=== PATIENT | female | born 1975 | race Caucasian/White ===

== ENCOUNTER 2016-10-05 11:27 | Emergency (ER) | payer BC ==
--- NOTE | 2016-10-05 11:48 | Emergency Department Record ---
History of Present Illness - General Chief Complaint: Abdominal Pain Stated Complaint: ABD PAIN AND VAG BLEEDING Time Seen by Provider: 10/05/16 11:48 Source: Patient Mode of Arrival: Ambulatory Limitations: No limitations - History of Present Illness Initial Comments: The patient is here due to a one week hx of unusual vaginal bleeding with pelvic cramping the last few days. She denies any dizziness or lightheadedness. The bleeding has been off and on for a few days and presently seems to have stopped. The bleeding did start a week before her normal menses should occur. She denies any fever or chills, and she does have an appointment with her TECHNICAL FELLOW doctor later this week. The patient has had her L ovary removed in the past. MD Complaint: Abdominal pain Onset/Timin -: Week(s) Location: Suprapubic Radiation: None Migration to: LLQ Severity: Moderate Quality: Cramping, Sharp, Stabbing Consistency: Constant Improves With: Nothing Worsens With: Nothing Context: Other Associated Symptoms: Chills, Other Treatments Prior to Arrival: NSAIDs - Related Data LMP (females 10-50): Last week Home Medications Medication Instructions Recorded Confirmed Last Taken Lisinopril 10 mg PO DAILY 10/05/16 10/05/16 10/05/16 Metformin HCl [Glucophage Xr] 500 mg PO DAILY 10/05/16 10/05/16 Unknown Pravastatin Sodium [Pravachol] 40 mg PO DAILY 10/05/16 10/05/16 Unknown Sumatriptan Succinate [Imitrex] 100 mg PO DAILY 10/05/16 10/05/16 Unknown Temazepam [Restoril] 22.5 mg PO QHS PRN 10/05/16 10/05/16 Unknown Previous Rx's Medication Instructions Recorded Doxycycline Monohydrate [Mondoxyne 100 mg PO BID #20 capsule 10/05/16 Nl] Hydrocodone/Acetaminophen [[place] 1 - 2 each PO .EVERY 4-6 HRS PRN 10/05/16 5-325 Tablet] #20 tablet Metronidazole [Flagyl] 500 mg PO BID #20 tablet 10/05/16 Ondansetron [Zofran Odt] 4 mg SL .Q4-6H PRN #12 tab.rapdis 10/05/16 Allergies Allergy/AdvReac Type Severity Reaction Status Date / Time acetaminophen [From [place]] AdvReac ITCHING Verified 10/05/16 11:56 diphenhydramine HCl AdvReac HYPERSENSIT Verified 10/05/16 11:56 [From Benadryl] IVITY hydrocodone bitartrate AdvReac ITCHING Verified 10/05/16 11:56 [From [place]] Travel Screening - Travel/Exposure Within Last 30 Days Have you traveled within the last 30 days?: No - Travel/Exposure Within Last Year Have you traveled outside the [place] in the last year?: No - Additonal Travel Details Have you been exposed to anyone with a communicable illness?: No - Travel Symptoms Symptom Screening: None Review of Systems Constitutional: Denies: Chills, Fever Eyes: Denies: Eye discharge ENT: Denies: Congestion Respiratory: Denies: Cough, Dyspnea Past Medical History - SOCIAL HISTORY Smoking Status: Never smoker Alcohol Use: None Drug Use: None - RESPIRATORY Hx Respiratory Disorders: No - CARDIOVASCULAR Hx Cardio Disorders: Yes Hx Hypertension: Yes - NEURO Hx Neuro Disorders: Yes Hx Headaches: Yes - GI Hx GI Disorders: No - Hx Genitourinary Disorders: Yes Hx UTI: Yes - ENDOCRINE Hx Endocrine Disorders: Yes Hx Diabetes: Yes (Type 2) - MUSCULOSKELETAL Hx Musculoskeletal Disorders: No - PSYCH Hx Psych Problems: Yes Hx Anxiety: Yes - HEMATOLOGY/ONCOLOGY Hx Hematology/Oncology Disorders: No Family Medical History Any Significant Family History?: No Family Hx Comment (NOT TO BE USED IN PLACE OF ITEMS BELOW): Pt adopted. Physical Exam - General General Appearance: Alert, Oriented x3, Cooperative, No acute distress - Head Head exam: Atraumatic, Normocephalic, Normal inspection - Eye Eye exam: Normal appearance, PERRL - Neck Neck exam: Normal inspection, Full ROM. negative: Tenderness - Respiratory Respiratory exam: Normal lung sounds bilaterally. negative: Respiratory distress - Cardiovascular Cardiovascular Exam: Regular rate, Normal rhythm, Normal heart sounds - GI/Abdominal GI/Abdominal exam: Soft, Normal bowel sounds, Tenderness (There is very mild pelvic and lower abdominal tenderness.). negative: Guarding, Rebound, Rigid - exam: Adnexal tenderness (L), Adnexal tenderness (R), Cervical discharge ( mild.), cervical motion tenderness (moderate), Vaginal discharge (mild.). negative: Vaginal bleeding (The os was closed and there was no active bleeding.) , Vaginal erythema - Extremities Extremities exam: Normal inspection, Full ROM, Normal capillary refill. negative: Tenderness Course Vital Signs 10/05/16 11:46 Temperature 98.3 F Pulse Rate [ 105 H Pulse Ox Probe] Respiratory 16 Rate Blood Pressure 151/92 [Left Arm] Pulse Ox 99 - Reevaluation(s) Reevaluation #1: The patient is doing better at this time. She is resting comfortably and feels better with the Toradol. We are still waiting on the pelvic US. 10/05/16 13:38 Reevaluation #2: The patient is doing much better at this time. She is resting comfortably and appears very relaxed. On exam her abdomen is very soft with only minimal tenderness in the lower abdomen. 10/05/16 16:05 Reevaluation #3: The patient is resting comfortably and is declining any more pain medicines. Her CT was WNL and did not demonstrate any serious pathology. 10/05/16 16:25 Reevaluation #4: I did discuss the case with the patient's PCP Dr. Garcia. She agrees with the plan for discharge and following up later this week as planned. 10/05/16 16:41 Medical Decision Making - Data Complexity MDM Data: Labs Ordered and/or Reviewed, X-Ray Ordered and/or Reviewed - Lab Data Result diagrams: 10/05/16 12:11 10/05/16 12:11 - Radiology Data Radiology results: Report reviewed (Pelvic US: Uterus WNL with the R ovary WNL with no torsion. The L ovary is surgically absent. CT: Neg for any serious pathology. Normal Appendix.) Disposition Disposition: Discharge Clinical Impression: Pelvic pain Disposition: Home, Self-Care Condition: (1) Good Instructions: Pelvic Pain in Women (ED) Additional Instructions: Please take the [place] and Zofran as directed. Please also take the Flagyl and Doxycycline as directed. Please see your TECHNICAL FELLOW doctor in 3 days as planned. Return to the ER for any increased pain, fever or vomiting. Please return to the ER in the morning for any persistent pain, or sooner for worsening pain, fever, or vomiting. Prescriptions: Metronidazole [Flagyl] 500 mg PO BID #20 tablet Doxycycline Monohydrate [Mondoxyne Nl] 100 mg PO BID #20 capsule Hydrocodone/Acetaminophen [[place] 5-325 Tablet] 1 - 2 each PO .EVERY 4-6 HRS PRN #20 tablet PRN Reason: Pain Ondansetron [Zofran Odt] 4 mg SL .Q4-6H PRN #12 tab.rapdis PRN Reason: Nausea Forms: Patient Portal Access Time of Disposition: 16:45
[2016-10-05] MEDS ORDERED: 0.9 % SODIUM CHLORIDE 1,000 ML BAG IV ONE (11:55)
[2016-10-05 12:14] LABS: BASO % 0.3 % (0-6); EOS % 1.4 % (0-6); GRAN % 76.5 % (47-80); HEMATOCRIT 40.3 % (35.0-47.0); HEMOGLOBIN 13.7 gm/dl (11.6-16.0); LYMPH % 16.7 % (16-45); MEAN CELL VOLUME 77.4 fl (81-97); MEAN CORPUSCULAR HEMOGLOBIN 26.3 pg (27-33); MEAN PLATELET VOLUME 9.6 fl (7.4-10.4); MONO % 5.1 % (0-9); PLATELET COUNT 357 K/uL (130-400); RED BLOOD COUNT 5.21 M/uL (3.80-5.40); RED CELL DISTRIBUTION WIDTH 13.3 % (11.5-14.5); WHITE BLOOD COUNT W/O DIFF 9.4 K/uL (4.2-12.2)
[2016-10-05 12:15] LABS: URINE APPEARANCE CLEAR; URINE BILIRUBIN NEGATIVE (NEGATIVE); URINE BLOOD SMALL (NEGATIVE); URINE COLOR YELLOW; URINE KETONE NEGATIVE (NEGATIVE); URINE LEUKOCYTE ESTERASE NEGATIVE (NEGATIVE); URINE NITRITE NEGATIVE (NEGATIVE); URINE PROTEIN NEGATIVE (NEGATIVE); URINE UROBILINOGEN 0.2 E.U./dL (0.20 - 1.00)
[2016-10-05 12:25] LABS: URINE BACTERIA 2+; URINE SQUAMOUS EPITHELIAL CELL 16 - 20 /hpf
[2016-10-05 12:26] LABS: HCG,QUALITATIVE URINE NEGATIVE (NEGATIVE)
[2016-10-05 12:27] LABS: ALBUMIN 4.6 gm/dL (3.5-5.0); ALKALINE PHOSPHATASE 103 U/L (38-126); ALT/SGPT 35 U/L (9-52); ANION GAP 16.3 (7-16); AST/SGOT 16 U/L (14-36); BILIRUBIN,TOTAL 0.41 mg/dL (0.2-1.3); BLOOD UREA NITROGEN 8 mg/dL (7-17); CARBON DIOXIDE 24.7 mmol/L (22-30); CREATININE 0.6 mg/dL (0.52-1.04); EST GLOMERULAR FILTRATION RATE > 60 ml/min; GLUCOSE,RANDOM 292 mg/dL (70-110); LIPASE 46 U/L (23-300); TOTAL PROTEIN 7.5 gm/dL (6.3-8.2)
[2016-10-05] MEDS ORDERED: KETOROLAC 30 MG/ML VIAL IVP ONE ×2 (12:31→15:14)
[2016-10-05] MEDS ORDERED: HYDROMORPHONE HCL 1 MG/ML CPJ IVP ONE ×2 (15:24→16:40)
[2016-10-05] MEDS ORDERED: ONDANSETRON HCL IV 4 MG/2 ML VIAL IVP ONE (15:24)
[2016-10-05] MEDS ORDERED: CEFTRIAXONE 250 MG VIAL IM ONE (16:38)
[2016-10-06 19:43] LABS: GC SPECIMEN TYPE Cervix (())
--- NOTE | 2016-10-07 15:00 | CT SCAN REPORT ---
EXAM: CT OF THE ABDOMEN AND PELVIS WITHOUT CONTRAST HISTORY: INTERMITTENT LOWER ABDOMINAL PAIN FOR ONE WEEK. HEAVY PERIODS. TECHNIQUE: Thin collimation helical CT examination of the abdomen and pelvis was performed without oral or intravenous contrast administration limiting evaluation of bowel and solid viscera respectively. Comparison: Ultrasound of the pelvis with transvaginal imaging dated 10/05/16. FINDINGS: The visualized lung bases are grossly clear. No pleural or pericardial effusion is demonstrated. No focal abnormality is demonstrated within the liver, spleen, pancreas, or adrenal glands. The kidneys are normal in size, position and are smoothly marginated. There is a possible tiny nonobstructing calculus in the mid left kidney as seen on image 35 of 117. No renal mass identified. The renal collecting systems are normal in caliber throughout. No ureteral calculus visualized. There is mild distention of the gallbladder without evidence of calcified stone , gallbladder wall thickening or pericholecystic fluid. No biliary ductal dilatation is seen. No intraabdominal nor retroperitoneal lymphadenopathy. No pelvic mass or lymphadenopathy demonstrated. There is possible trace free fluid in the cul-de-sac. The small uterine mass demonstrated on same day ultrasound examination is not visualized with confidence. No gross bowel dilatation nor bowel wall thickening is seen. The appendix is visualized and normal in appearance. No lytic or blastic bone lesion demonstrated. IMPRESSION: 1. TRACE FREE FLUID IN THE CUL-DE-SAC IS NONSPECIFIC. 2. POSSIBLE TINY NONOBSTRUCTING CALCULUS IN THE MID LEFT KIDNEY. 3. NORMAL APPENDIX. JOB NUMBER: [id number] [facility]TDD
--- NOTE | 2016-10-07 15:39 | ULTRASOUND REPORT ---
EXAM: ULTRASOUND PELVIC W TRANSVAG (NON-OB) HISTORY: PELVIC PAIN SINCE WEDNESDAY. VAGINAL BLEEDING. TECHNIQUE: Sonographic evaluation of the pelvis was performed using transabdominal and transvaginal probes. Flynn-scale, color Doppler, and duplex Doppler imaging were utilized. COMPARISON: None. FINDINGS: TRANSABDOMINAL SCAN: The uterus is anteverted in position and normal in size measuring 7.7 x 3.3 x 4.7 cm. The myometrium appears grossly normal. The endometrium is normal measuring 7 mm. There are no abnormal endometrial fluid collections. The right ovary is normal in appearance and size measuring 2.9 x 1.1 x 2.9 cm. The left ovary is not visualized. TRANSVAGINAL SCAN: Tiny nabothian cysts are present within the cervix. The myometrium is normal. The endometrium is normal in thickness measuring 10 mm. There is a mildly heterogeneous polypoid-like filling defect within the posterior aspect of the endometrium measuring 8 mm in maximal dimension. The appearance is suspicious for an endometrial polyp. A tiny intramural fibroid is present within the posterior uterine body and measures 5 mm in maximal dimension. The remaining myometrium appears normal. The right ovary contains a few simple follicles but is otherwise unremarkable measuring 4 x 2.8 x 3.6 cm. A tiny amount of free fluid is present within the posterior cul-de-sac. The left ovary is not visualized. Duplex Doppler ultrasound was performed to asses for ovarian torsion. Color- flow is present within the right ovary. Intraovarian spectral venous and arterial waveforms of the right ovary demonstrate unremarkable, uncorrected velocities. There is no right ovarian torsion. IMPRESSION: 1. SUSPECTED ENDOMETRIAL POLYP ALONG THE POSTERIOR ENDOMETRIUM NEAR THE FUNDUS AND MEASURING 8 MM IN MAXIMAL DIMENSION. ENDOMETRIAL SAMPLING IS SUGGESTED. 2. A 5 MM INTRAMURAL FIBROID WITHIN THE POSTERIOR FUNDUS. 3. NORMAL RIGHT OVARY WITH NO TORSION. 4. TRACE FREE FLUID WITHIN THE POSTERIOR CUL-DE-SAC. 5. THE LEFT OVARY IS NOT VISUALIZED. JOB NUMBER: [id number] [facility]
== END 2016-10-05 17:04 | disposition home or self-care (01) ==
LOC: ER 11:27
DX: R10.2 Pelvic and perineal pain (principal); R10.32 Left lower quadrant pain; N93.9 Abnormal uterine and vaginal bleeding, unspecified; I10 Essential (primary) hypertension; E11.9 Type 2 diabetes mellitus without complications; Z79.84 Long term (current) use of oral hypoglycemic drugs
CPT/HCPCS: 99284 ×2; 96376; 96374; 96372; 96375; 83690; 85025; 80076; 80048; 81001; 81025; 76856; 76830; 74176; Q0111; J1885; J2405; J0696; J1170; 87210; J7030

== ENCOUNTER 2016-10-11 07:33 | Emergency (ER) | payer BC ==
[2016-10-11] MEDS ORDERED: ONDANSETRON HCL IV 4 MG/2 ML VIAL IV ONE (08:08)
[2016-10-11] MEDS ORDERED: 0.9 % SODIUM CHLORIDE 1,000 ML BAG IV ONE (08:08)
[2016-10-11] MEDS ORDERED: DICYCLOMINE HCL 10 MG/ML AMPUL IM ONE (08:08)
[2016-10-11 08:35] LABS: URINE APPEARANCE CLEAR; URINE BILIRUBIN NEGATIVE (NEGATIVE); URINE BLOOD NEGATIVE (NEGATIVE); URINE COLOR YELLOW; URINE KETONE 15 mg/dL (NEGATIVE); URINE LEUKOCYTE ESTERASE NEGATIVE (NEGATIVE); URINE NITRITE NEGATIVE (NEGATIVE); URINE PROTEIN NEGATIVE (NEGATIVE); URINE UROBILINOGEN 0.2 E.U./dL (0.20 - 1.00)
[2016-10-11 08:36] LABS: BASO % 0.4 % (0-6); EOS % 1.5 % (0-6); GRAN % 75.5 % (47-80); HEMATOCRIT 39.6 % (35.0-47.0); LYMPH % 17.9 % (16-45); MEAN CELL VOLUME 78.7 fl (81-97); MEAN CORPUSCULAR HEMOGLOBIN 25.8 pg (27-33); MEAN CORPUSCULAR HGB CONC 32.8 g/dl (32-36); MEAN PLATELET VOLUME 9.6 fl (7.4-10.4); MONO % 4.7 % (0-9); PLATELET COUNT 286 K/uL (130-400); RED BLOOD COUNT 5.03 M/uL (3.80-5.40); RED CELL DISTRIBUTION WIDTH 13.9 % (11.5-14.5); URINE GLUCOSE (UA) >=1000 mg/dL (NEGATIVE); WHITE BLOOD COUNT W/O DIFF 7.4 K/uL (4.2-12.2)
[2016-10-11 08:47] LABS: ALB/GLOB RATIO 1.5 (1.1-1.8); ALBUMIN 4.3 gm/dL (3.5-5.0); ALKALINE PHOSPHATASE 81 U/L (38-126); ALT/SGPT 44 U/L (9-52); AMYLASE < 30 U/L (30-110); ANION GAP 14.1 (7-16); AST/SGOT 25 U/L (14-36); BLOOD UREA NITROGEN 8 mg/dL (7-17); CARBON DIOXIDE 23.9 mmol/L (22-30); CREATININE 0.5 mg/dL (0.52-1.04); EST GLOMERULAR FILTRATION RATE > 60 ml/min; GLUCOSE,RANDOM 249 mg/dL (70-110); LIPASE 37 U/L (23-300); TOTAL PROTEIN 7.1 gm/dL (6.3-8.2)
[2016-10-11] MEDS ORDERED: HYDROMORPHONE HCL 1 MG/ML CPJ IVP ONE ×2 (09:34→11:41)
--- NOTE | 2016-10-11 10:06 | Emergency Department Record ---
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 she did have an endometrial polyp that further evaluation was recommended and a fibroid but otherwise was all neg. pt returns today stating that pain got better initially but now is worse then ever. she describes pain as sharp ,crampy, stabbing in rlq. she denies n/v/c/d. MD Complaint: Abdominal pain Onset/Timin -: Days(s) Location: Suprapubic, RLQ Radiation: None Migration to: No migration Severity: Severe Quality: Sharp, Stabbing Consistency: Constant Improves With: Nothing Worsens With: Nothing Associated Symptoms: Vomiting - Related Data LMP Date: 09/27/16 Patient : No Home Medications Medication Instructions Recorded Confirmed Last Taken Lisinopril 10 mg PO DAILY 10/05/16 10/11/16 10/05/16 Metformin HCl [Glucophage Xr] 500 mg PO DAILY 10/05/16 10/11/16 Unknown Pravastatin Sodium [Pravachol] 40 mg PO DAILY 10/05/16 10/11/16 Unknown Sumatriptan Succinate [Imitrex] 100 mg PO DAILY 10/05/16 10/11/16 Unknown Temazepam [Restoril] 22.5 mg PO QHS PRN 10/05/16 10/11/16 Unknown Fluconazole [Fluconazole] 150 mg PO ASDIR 10/11/16 10/11/16 Unknown Previous Rx's Medication Instructions Recorded Doxycycline Monohydrate [Mondoxyne 100 mg PO BID #20 capsule 10/05/16 Nl] Metronidazole [Flagyl] 500 mg PO BID #20 tablet 10/05/16 Ondansetron [Zofran Odt] 4 mg SL .Q4-6H PRN #12 tab.rapdis 10/05/16 Hydrocodone/Acetaminophen [[place] 1 tab PO Q6H PRN #7 tab 10/11/16 5mg/325mg] Ondansetron [Zofran Odt] 4 mg PO Q8H #10 tab.rapdis 10/11/16 Allergies Allergy/AdvReac Type Severity Reaction Status Date / Time acetaminophen [From [place]] AdvReac ITCHING Verified 10/05/16 11:56 diphenhydramine HCl AdvReac HYPERSENSIT Verified 10/05/16 11:56 [From Benadryl] IVITY hydrocodone bitartrate AdvReac ITCHING Verified 10/05/16 11:56 [From [place]] Travel Screening - Travel/Exposure Within Last 30 Days Have you traveled within the last 30 days?: No Review of Systems Reviewed: No additional complaints except as noted below Constitutional: Reports: As per HPI. Denies: Chills, Fever, Malaise, Night sweats, Weakness, Weight change Eyes: Reports: As per HPI. Denies: Eye discharge, Eye pain, Photophobia, Vision change ENT: Reports: As per HPI. Denies: Congestion, Dental pain, Ear pain, Epistaxis , Hearing loss, Throat pain Respiratory: Reports: As per HPI. Denies: Cough, Dyspnea, Hemoptysis, Stridor, Wheezes Cardiovascular: Reports: As per HPI. Denies: Arrhythmia, Chest pain, Dyspnea on exertion, Edema, Murmurs, Orthopnea, Palpitations, Paroxysmal nocturnal dyspnea, Rheumatic Fever, Syncope Endocrine: Reports: As per HPI. Denies: Fatigue, Heat or cold intolerance, Polydipsia, Polyuria Gastrointestinal: Reports: As per HPI. Denies: Abdominal pain, Constipation, Diarrhea, Hematemesis, Hematochezia, Melena, Nausea, Vomiting Genitourinary: Reports: As per HPI. Denies: Abnormal menses, Discharge, Dyspareunia, Dysuria, Frequency, Hematuria, Incontinence, Retention, Urgency Musculoskeletal: Reports: As per HPI. Denies: Arthralgia, Back pain, Gout, Joint swelling, Myalgia, Neck pain Skin: Reports: As per HPI. Denies: Bruising, Change in color, Change in hair/ nails, Lesions, Pruritus, Rash Neurological: Reports: As per HPI. Denies: Abnormal gait, Confusion, Headache, Numbness, Paresthesias, Seizure, Tingling, Tremors, Vertigo, Weakness Psychiatric: Reports: As per HPI. Denies: Anxiety, Auditory hallucinations, Depression, Homicidal thoughts, Suicidal thoughts, Visual hallucinations Hematological/Lymphatic: Reports: As per HPI. Denies: Anemia, Blood Clots, Easy bleeding, Easy bruising, Swollen glands Past Medical History - SOCIAL HISTORY Smoking Status: Never smoker Alcohol Use: Rare Drug Use: None - RESPIRATORY Hx Respiratory Disorders: No - CARDIOVASCULAR Hx Cardio Disorders: Yes Hx Hypertension: Yes - NEURO Hx Neuro Disorders: Yes Hx Headaches: Yes - GI Hx GI Disorders: No - Hx Genitourinary Disorders: Yes Hx UTI: Yes - ENDOCRINE Hx Endocrine Disorders: Yes Hx Diabetes: Yes (Type 2) - MUSCULOSKELETAL Hx Musculoskeletal Disorders: No - PSYCH Hx Psych Problems: Yes Hx Anxiety: Yes - HEMATOLOGY/ONCOLOGY Hx Hematology/Oncology Disorders: No Family Medical History Any Significant Family History?: No Family Hx Comment (NOT TO BE USED IN PLACE OF ITEMS BELOW): Pt adopted. Physical Exam - General General Appearance: Alert, Oriented x3, Cooperative, Mild distress - Head Head exam: Normal inspection - Eye Eye exam: Normal appearance, PERRL, EOMI Pupils: Normal accommodation - ENT ENT exam: Normal exam, Mucous membranes moist, Normal external ear exam, Normal orophraynx Ear exam: Normal external inspection. negative: External canal tenderness Nasal Exam: Normal inspection. negative: Discharge, Sinus tenderness Mouth exam: Normal external inspection, Tongue normal Teeth exam: Normal inspection. negative: Dental caries Throat exam: Normal inspection. negative: Tonsillar erythema, Tonsillar exudate - Neck Neck exam: Normal inspection, Full ROM. negative: Tenderness - Respiratory Respiratory exam: Normal lung sounds bilaterally. negative: Respiratory distress - Cardiovascular Cardiovascular Exam: Regular rate, Normal rhythm, Normal heart sounds - GI/Abdominal GI/Abdominal exam: Soft, Normal bowel sounds, Tenderness - Rectal Rectal exam: Deferred - exam: Deferred - Extremities Extremities exam: Normal inspection, Full ROM, Normal capillary refill. negative: Tenderness - Back Back exam: Reports: Normal inspection, Full ROM. Denies: Muscle spasm, Rash noted, Tenderness - Neurological Neurological exam: Alert, CN II-XII intact, Normal gait, Oriented X3 - Psychiatric Psychiatric exam: Normal affect, Normal mood - Skin Skin exam: Dry, Intact, Normal color, Warm Course Vital Signs 10/11/16 07:37 Temperature 97.4 F L Pulse Rate 94 H Respiratory 14 Rate Blood Pressure 133/94 Pulse Ox 99 Medical Decision Making - Lab Data Result diagrams: 10/11/16 08:20 10/11/16 08:20 Lab Results 10/11/16 10/11/16 10/11/16 Range/Units 08:20 08:20 08:20 WBC 7.4 (4.2-12.2) K/uL RBC 5.03 (3.80-5.40) M/uL Hgb 13.0 (11.6-16.0) gm/dl Hct 39.6 (35.0-47.0) % MCV 78.7 L (81-97) fl MCH 25.8 L (27-33) pg MCHC 32.8 (32-36) g/dl RDW 13.9 (11.5-14.5) % Plt Count 286 (130-400) K/uL MPV 9.6 (7.4-10.4) fl Gran % 75.5 (47-80) % Lymphocytes % 17.9 (16-45) % Monocytes % 4.7 (0-9) % Eosinophils % 1.5 (0-6) % Basophils % 0.4 (0-6) % Sodium 137 (136-145) mmol/L Potassium 4.0 (3.5-5.1) mmol/L Chloride 99 (98-107) mmol/L Carbon Dioxide 23.9 (22-30) mmol/L Anion Gap 14.1 (7-16) BUN 8 (7-17) mg/dL Creatinine 0.5 L (0.52-1.04) mg/dL Estimated GFR > 60 ml/min Random Glucose 249 H (70-110) mg/dL Calcium 9.2 (8.5-10.1) mg/dL Total Bilirubin 0.30 (0.2-1.3) mg/dL AST 25 (14-36) U/L ALT 44 (9-52) U/L Alkaline Phosphatase 81 (38-126) U/L Total Protein 7.1 (6.3-8.2) gm/dL Albumin 4.3 (3.5-5.0) gm/dL Globulin 2.8 (1.4-4.8) gm/dL Albumin/Globulin Ratio 1.5 (1.1-1.8) Amylase < 30 L (30-110) U/L Lipase 37 (23-300) U/L Urine Color Yellow Urine Appearance Clear Urine pH 6.0 (5.0-8.0) Ur Specific [place] 1.025 (1.002-1.030) Urine Protein Negative (NEGATIVE) Urine Glucose (UA) >=1000 mg/dl H (NEGATIVE) Urine Ketones 15 mg/dl H (NEGATIVE) Urine Blood Negative (NEGATIVE) Urine Nitrite Negative (NEGATIVE) Urine Bilirubin Negative (NEGATIVE) Urine Urobilinogen 0.2 (0.20 - 1.00) E.U./dL Ur Leukocyte Esterase Negative (NEGATIVE) Disposition Disposition: Discharge Clinical Impression: Follicle cyst Disposition: Home, Self-Care Condition: (1) Good Instructions: Abdominal Pain (ED), Ovarian Cyst (ED) Additional Instructions: follow up with certified nursing assistant instructor tomorrow. return sooner if worse. Prescriptions: Hydrocodone/Acetaminophen [[place] 5mg/325mg] 1 tab PO Q6H PRN #7 tab PRN Reason: Pain - General Ondansetron [Zofran Odt] 4 mg PO Q8H #10 tab.rapdis Forms: Patient Portal Access
[2016-10-11 10:28] LABS: ACETONE,SERUM NEGATIVE (NEGATIVE)
[2016-10-11] MEDS ORDERED: ONDANSETRON HCL IV 4 MG/2 ML VIAL IVP ONE (11:41)
--- NOTE | 2016-10-12 12:31 | CT SCAN REPORT ---
EXAM: CT OF THE ABDOMEN AND PELVIS WITH CONTRAST HISTORY: WORSENING LOWER ABDOMINAL PAIN FOR TWO WEEKS. TECHNIQUE: Following oral and intravenous contrast administration, helical CT examination of the abdomen and pelvis was performed including delayed images through the kidneys with 100 ml of Omnipaque 300 utilized. Comparison: CT of the abdomen and pelvis without contrast dated 10/05/16. FINDINGS: Patchy opacities are noted in the dependent lung bases consistent with atelectasis or less likely infiltrate. These are new. The visualized lung bases are otherwise clear and there is no pleural or pericardial effusion. The heart is not enlarged. The liver, spleen, pancreas, adrenal glands, and kidneys are normal in appearance. The gallbladder is unremarkable. No biliary ductal dilatation is seen. No intraabdominal nor retroperitoneal lymphadenopathy is identified. The vasculature is unremarkable. By history, the left ovary is surgically absent. The right ovary is visualized and measures 3.1 x 3.1 x 2.8 cm. It appears to have several follicles within with the largest measuring 1.7 mm. No suspicious pelvic mass, pelvic adenopathy , or free pelvic fluid is seen. The trace free fluid suggested on the prior examination is not convincingly redemonstrated. No gross bowel dilatation nor bowel wall thickening is seen. The appendix is visualized and normal in appearance. There is a moderate amount of stool within the distal colon and rectum. No new lytic or blastic bone lesion is seen. IMPRESSION: 1. MINOR PATCHY OPACITIES IN THE DEPENDENT LUNGS CONSISTENT WITH ATELECTASIS WITH PNEUMONITIS LESS LIKELY. 2. NO CONVINCING CT EVIDENCE OF AN ACUTE INTRAABDOMINAL NOR INTRAPELVIC PROCESS. 3. SURGICAL ABSENCE OF THE LEFT OVARY. SEVERAL SMALL FOLLICLES WITHIN THE RIGHT OVARY. 4. THE TINY NONOBSTRUCTING CALCULUS PREVIOUSLY QUESTIONED IN THE MID LEFT KIDNEY IS NOT VISUALIZED WITH CONFIDENCE. JOB NUMBER: [id number] [facility]
== END 2016-10-11 12:20 | disposition home or self-care (01) ==
LOC: ER 07:33
DX: N83.01 Follicular cyst of right ovary (principal); R11.11 Vomiting without nausea
CPT/HCPCS: 99284 ×2; 96376; 96374; 96372; 96375; 96361; 82800; 82150; 83690; 85025; 80053; 82009; 81003; 74177; Q9967; J2405; J1170; J7030

== ENCOUNTER 2017-01-31 15:05 | Emergency (ER) | payer BC ==
[2017-01-31] MEDS ORDERED: ONDANSETRON HCL IV 4 MG/2 ML VIAL IV ONE (15:40)
[2017-01-31] MEDS ORDERED: 0.9 % SODIUM CHLORIDE 1,000 ML BAG IV ONE (15:40)
--- NOTE | 2017-01-31 15:40 | Emergency Department Record ---
History of Present Illness - General Chief complaint: Female Urogenital Problem Stated complaint: FEMALE PROBLEMS Time Seen by Provider: 01/31/17 15:28 Source: Patient Mode of Arrival: Ambulatory - History of Present Illness Initial comments: The patient states that she has been vaginally bleeding constantly for the past year, ranging from brownish to gushing red with clots. Along with this she has RLQ "ovary" pain described as "stabbing." She sees [facility] which has scheduled her for a hysterectomy on 03-03-[address] Gross (she showed us pre -op papers). Their office did an ultrasound about a month ago in the office which the patient states showed no cysts, but polyps present. She is and constant menses. She is fed up with the pain and bleeding and is ready to have a hysterectomy despite having had no children. She states she used to take norco for the pain (with zofran an hour before), but she states she has not had any norco for two weeks. Of late she has been getting tylenol #3 along with motrin which has only taken the edge off her pain. She denies having the bleeding worsen today, but states she just can't take the pain anymore and needs something to control it. She states the pain is 10/10. She had her left ovary removed in 2013 due to cysts. She still has her appendix. Complaint: Vaginal bleeding, Other ("ovary pain") Onset/Timin -: Days(s) Location: RLQ Radiation: Non-radiating Severity: Severe Severity scale (1-10): 10 Quality: Sharp, Stabbing Consistency: Constant Improves with: None Worsens with: None Associated Symptoms: Abdominal pain, Vaginal bleeding - Related Data Home Medications Medication Instructions Recorded Confirmed Last Taken Metformin ER HCl [Glucophage Xr] 500 mg PO DAILY 10/05/16 01/31/17 Unknown Pravastatin Sodium [Pravachol] 40 mg PO DAILY 10/05/16 01/31/17 Unknown Sumatriptan Succinate [Imitrex] 100 mg PO DAILY 10/05/16 01/31/17 Unknown Temazepam [Restoril] 22.5 mg PO QHS PRN 10/05/16 01/31/17 Unknown Insulin Glargine,Hum.rec.anlog 1 unit SQ QHS 01/31/17 01/31/17 Unknown [Lantus Marlenyostar] Prazosin HCl 1 mg PO DAILY 01/31/17 01/31/17 Unknown Previous Rx's Medication Instructions Recorded Hydrocodone/Acetaminophen [[place] 1 tab PO Q6H PRN #7 tab 10/11/16 5mg/325mg] Ondansetron [Zofran Odt] 4 mg PO Q8H #10 tab.rapdis 10/11/16 Tramadol HCl [Ultram] 50 mg PO QHS PRN #5 tablet 01/31/17 Allergies Allergy/AdvReac Type Severity Reaction Status Date / Time diphenhydramine HCl AdvReac HYPERSENSIT Verified 01/31/17 15:22 [From Guerline] IVITY Travel Screening - Travel/Exposure Within Last 30 Days Have you traveled within the last 30 days?: No Review of Systems Reviewed: No additional complaints except as noted below Constitutional: Reports: As per HPI. Denies: Chills, Fever, Malaise, Night sweats, Weakness, Weight change Eyes: Reports: As per HPI. Denies: Eye discharge, Eye pain, Photophobia, Vision change ENT: Reports: As per HPI. Denies: Congestion, Dental pain, Ear pain, Epistaxis , Hearing loss, Throat pain Respiratory: Reports: As per HPI. Denies: Cough, Dyspnea, Hemoptysis, Stridor, Wheezes Cardiovascular: Reports: As per HPI. Denies: Arrhythmia, Chest pain, Dyspnea on exertion, Edema, Murmurs, Orthopnea, Palpitations, Paroxysmal nocturnal dyspnea, Rheumatic Fever, Syncope Endocrine: Reports: As per HPI. Denies: Fatigue, Heat or cold intolerance, Polydipsia, Polyuria Gastrointestinal: Reports: As per HPI. Denies: Abdominal pain, Constipation, Diarrhea, Hematemesis, Hematochezia, Melena, Nausea, Vomiting Genitourinary: Reports: As per HPI. Denies: Abnormal menses, Discharge, Dyspareunia, Dysuria, Frequency, Hematuria, Incontinence, Retention, Urgency Musculoskeletal: Reports: As per HPI. Denies: Arthralgia, Back pain, Gout, Joint swelling, Myalgia, Neck pain Skin: Reports: As per HPI. Denies: Bruising, Change in color, Change in hair/ nails, Lesions, Pruritus, Rash Neurological: Reports: As per HPI. Denies: Abnormal gait, Confusion, Headache, Numbness, Paresthesias, Seizure, Tingling, Tremors, Vertigo, Weakness Psychiatric: Reports: As per HPI. Denies: Anxiety, Auditory hallucinations, Depression, Homicidal thoughts, Suicidal thoughts, Visual hallucinations Hematological/Lymphatic: Reports: As per HPI. Denies: Anemia, Blood Clots, Easy bleeding, Easy bruising, Swollen glands Past Medical History - SOCIAL HISTORY Smoking Status: Never smoker Alcohol Use: Rare Drug Use: None - RESPIRATORY Hx Respiratory Disorders: No - CARDIOVASCULAR Hx Cardio Disorders: Yes Hx Hypertension: Yes Comment:: high cholesterol - NEURO Hx Neuro Disorders: Yes Hx Headaches: Yes - GI Hx GI Disorders: No - Hx Genitourinary Disorders: Yes Hx UTI: Yes - ENDOCRINE Hx Endocrine Disorders: Yes Hx Diabetes: Yes (Type 2) - MUSCULOSKELETAL Hx Musculoskeletal Disorders: No - PSYCH Hx Psych Problems: Yes Hx Anxiety: Yes - HEMATOLOGY/ONCOLOGY Hx Hematology/Oncology Disorders: No Family Medical History Any Significant Family History?: No Family Hx Comment (NOT TO BE USED IN PLACE OF ITEMS BELOW): Pt adopted. Physical Exam - General General Appearance: Alert, Oriented x3, Cooperative, No acute distress, Other ( face and neck slightly clammy) - Head Head exam: Normal inspection - Eye Eye exam: Normal appearance, PERRL Pupils: Normal accommodation - ENT ENT exam: Normal exam, Mucous membranes dry, Normal external ear exam, Normal orophraynx, TM's normal bilaterally Ear exam: Normal external inspection. negative: External canal tenderness Nasal Exam: Normal inspection. negative: Discharge, Sinus tenderness Mouth exam: Normal external inspection, Tongue normal Teeth exam: Normal inspection, Other (poor dentition, dry mucosa). negative: Dental caries Throat exam: Normal inspection. negative: Tonsillar erythema, Tonsillar exudate - Neck Neck exam: Normal inspection, Full ROM. negative: Tenderness - Respiratory Respiratory exam: Normal lung sounds bilaterally. negative: Respiratory distress - Cardiovascular Cardiovascular Exam: Normal rhythm, Normal heart sounds, Tachycardia - GI/Abdominal GI/Abdominal exam: Soft, Normal bowel sounds, Tenderness (RLQ point of maximal tenderness with LLQ minor tenderness). negative: Distended, Rebound, Rigid - Rectal Rectal exam: Deferred - exam: Deferred, Adnexal mass (R), Adnexal tenderness (R), Vaginal bleeding ( moderate amount, no clots, os closed). negative: Adnexal mass (L), cervical motion tenderness - Extremities Extremities exam: Normal inspection, Full ROM, Normal capillary refill. negative: Tenderness - Back Back exam: Reports: Normal inspection, Full ROM. Denies: Muscle spasm, Rash noted, Tenderness - Neurological Neurological exam: Alert, CN II-XII intact, Normal gait, Oriented X3, Reflexes normal - Psychiatric Psychiatric exam: Anxious, Normal mood - Skin Skin exam: Dry, Intact, Normal color, Warm Course Vital Signs 01/31/17 15:16 Temperature 97.9 F Pulse Rate 115 H Respiratory 20 Rate Blood Pressure 128/87 Pulse Ox 96 - Reevaluation(s) Reevaluation #1: Patient is much more comfortable. Skin is no longer clammy. Her pulse is now below 100. She states her BS usually runs in the 100's up to 200 max, but prior to coming here she ate a loaded baked potato and some ice cream so she expected her BS to be high. She takes 40 units of Lantus at bedtime daily. She states 5 units of regular insulin for her bs being over 300 is reasonable. BS now is 289. 01/31/17 17:21 01/31/17 17:29 Medical Decision Making - Management Options MDM Management: No Additional Work-up Planned - Data Complexity MDM Data: Labs Ordered and/or Reviewed, X-Ray Ordered and/or Reviewed ( Noncontrast Abd/Pelvis CT: 3.7 cm low density lesion consistent with MARISSA; appendix is normal. Per Radiologist.) - Lab Data Result diagrams: 01/31/17 15:50 01/31/17 15:50 Disposition Disposition: Discharge Clinical Impression: RLQ abdominal pain, Right ovarian cyst Disposition: Home, Self-Care Condition: (1) Good Instructions: Ovarian Cyst (ED) Additional Instructions: Increase fluid intake. Observe strict diabetic diet. Follow blood sugars for better control. Call [email or web address] to see if openings for sooner elective hysterectomy are available. Take ultram, only if needed, at night for pain relief. Prescriptions: Tramadol HCl [Ultram] 50 mg PO QHS PRN #5 tablet PRN Reason: Pain - Severe (8-10)
[2017-01-31 16:03] LABS: BASO % 0.3 % (0-6); EOS % 1.2 % (0-6); GRAN % 76.2 % (47-80); HEMATOCRIT 41.7 % (35.0-47.0); HEMOGLOBIN 14.1 gm/dl (11.6-16.0); LYMPH % 15.1 % (16-45); MEAN CELL VOLUME 77.5 fl (81-97); MEAN CORPUSCULAR HEMOGLOBIN 26.2 pg (27-33); MEAN CORPUSCULAR HGB CONC 33.8 g/dl (32-36); MEAN PLATELET VOLUME 9.5 fl (7.4-10.4); MONO % 7.2 % (0-9); PLATELET COUNT 433 K/uL (130-400); RED BLOOD COUNT 5.38 M/uL (3.80-5.40); RED CELL DISTRIBUTION WIDTH 14.7 % (11.5-14.5); WHITE BLOOD COUNT W/O DIFF 12.1 K/uL (4.2-12.2)
[2017-01-31 16:05] LABS: URINE APPEARANCE SL CLOUDY; URINE BILIRUBIN NEGATIVE (NEGATIVE); URINE BLOOD LARGE (NEGATIVE); URINE COLOR YELLOW; URINE KETONE 15 mg/dL (NEGATIVE); URINE LEUKOCYTE ESTERASE NEGATIVE (NEGATIVE); URINE NITRITE NEGATIVE (NEGATIVE); URINE PROTEIN NEGATIVE (NEGATIVE); URINE UROBILINOGEN 0.2 E.U./dL (0.20 - 1.00)
[2017-01-31 16:10] LABS: URINE GLUCOSE (UA) >=1000 mg/dL (NEGATIVE)
[2017-01-31] MEDS ORDERED: LORAZEPAM 2 MG/ML VIAL IV ONE (16:12)
[2017-01-31] MEDS ORDERED: KETOROLAC 30 MG/ML VIAL IVP ONE (16:12)
[2017-01-31 16:14] LABS: URINE RBC 16 - 25 (NONE SEEN); URINE WBC 0 - 2 (0-2/hpf)
[2017-01-31 16:16] LABS: ALBUMIN 4.3 gm/dL (3.5-5.0); ALKALINE PHOSPHATASE 99 U/L (38-126); ALT/SGPT 38 U/L (9-52); ANION GAP 7.9 (7-16); AST/SGOT 24 U/L (14-36); BILIRUBIN,TOTAL 0.44 mg/dL (0.2-1.3); BLOOD UREA NITROGEN 13 mg/dL (7-17); CARBON DIOXIDE 24.1 mmol/L (22-30); CREATININE 0.6 mg/dL (0.52-1.04); EST GLOMERULAR FILTRATION RATE > 60 ml/min; GLUCOSE,RANDOM 338 mg/dL (70-110); LIPASE 106 U/L (23-300); TOTAL PROTEIN 7.6 gm/dL (6.3-8.2)
[2017-01-31 16:18] LABS: BARBITURATE SCREEN URINE NOT DETECTED; HCG,QUALITATIVE URINE NEGATIVE (NEGATIVE); METHADONE SCREEN URINE NOT DETECTED; TRICYCLIC ANTIDEPRESSANT SCRN DETECTED
[2017-01-31 16:19] LABS: AMPHETAMINE SCREEN URINE NOT DETECTED; BENZODIAZEPINE SCREEN URINE DETECTED; COCAINE SCREEN URINE NOT DETECTED; METHAMPHETAMINE SCREEN NOT DETECTED; OPIATE SCREEN URINE NOT DETECTED; OXYCODONE SCREEN URINE NOT DETECTED; PHENCYCLIDINE SCREEN URINE NOT DETECTED; PROPOXYPHENE SCREEN URINE NOT DETECTED; THC SCREEN URINE NOT DETECTED
[2017-02-01 20:06] LABS: GC SPECIMEN TYPE Vaginal
--- NOTE | 2017-02-02 16:28 | CT SCAN REPORT ---
EXAM: CT SCAN ABDOMEN/PELVIS WO CONTRAST HISTORY: RIGHT LOWER QUADRANT PAIN AND VAGINAL BLEEDING. TECHNIQUE: CT of the abdomen and pelvis is performed without intravenous or oral contrast. COMPARISON: 10/05/2016. FINDINGS: The lung bases are unremarkable. The liver and spleen are unremarkable. No pancreatic mass or inflammatory change. The bile ducts are not dilated. There are no calcified gallstones. No adrenal lesion seen. No renal or ureteral calculi. No hydronephrosis. No aortic aneurysm. No periaortic mass or adenopathy. No dilated bowel loops. The appendix is unremarkable. There is a 3.7 x 2.8 cm low-density lesion in the right adnexal region, possibly an ovarian cyst. The uterus is unremarkable. Pelvis otherwise unremarkable. IMPRESSION: 1. LOW-DENSITY LESION IN THE RIGHT ADNEXAL REGION, POSSIBLY AN OVARIAN CYST. PELVIC ULTRASOUND SUGGESTED FOR FURTHER ASSESSMENT. 2. CT ABDOMEN AND PELVIS OTHERWISE UNREMARKABLE. UNREMARKABLE APPENDIX. JOB NUMBER: [id number] MTDD
== END 2017-01-31 17:43 | disposition home or self-care (01) ==
LOC: ER 15:05
DX: N83.201 Unspecified ovarian cyst, right side (principal); E11.9 Type 2 diabetes mellitus without complications; Z79.4 Long term (current) use of insulin
CPT/HCPCS: 99284 ×2; 96374; 96375; 96361; 83690; 85025; 80076; 80048; 36416; 81001; 82948; 81025; 80305; 74176; Q0111; J1885; J2405; J2060; 87210; J7030

== ENCOUNTER 2018-10-19 09:28 | Emergency (ER) | payer BC ==
[2018-10-19] MEDS ORDERED: ONDANSETRON HCL IV 4 MG/2 ML VIAL IV ONE (09:55)
[2018-10-19] MEDS ORDERED: 0.9 % SODIUM CHLORIDE 1,000 ML BAG IV ONE (09:55)
--- NOTE | 2018-10-19 10:02 | Emergency Department Record ---
History of Present Illness - General Chief Complaint: Abdominal Pain Stated Complaint: ABD PAIN Time Seen by Provider: 10/19/18 09:37 Source: Patient Mode of Arrival: Ambulatory Limitations: No limitations - History of Present Illness Initial Comments: The patient is here due to abdomen and back pain with loose watery stools for 3 days. The diarrhea was mild at first and now is very frequent. She denies any fever, chills, or blood in the stool. There has been no significant nausea, dysuria or vomiting and no travel or bad food exposure. The patient is having lower abdomen aching and flank pain bilaterally also. She has had her L ovary removed and a ERIC in the past. MD Complaint: Abdominal pain, Flank pain Onset/Timin -: Days(s) Location: Suprapubic Radiation: Back Severity scale (1-10): 10 Quality: Aching Consistency: Constant Improves With: Nothing Worsens With: Other Associated Symptoms: Diarrhea - Related Data Patient : No Home Medications Medication Instructions Recorded Confirmed Last Taken Glipizide 10 mg PO BID 10/19/18 10/19/18 10/19/18 Lorazepam [Ativan] 0.5 mg PO DAILY PRN 10/19/18 10/19/18 10/18/18 Previous Rx's Medication Instructions Recorded Dicyclomine HCl [Bentyl] 10 mg PO Q8H #20 cap 10/19/18 Ondansetron [Zofran Odt] 4 mg SL .Q4-6H PRN #12 tab.rapdis 10/19/18 Allergies Allergy/AdvReac Type Severity Reaction Status Date / Time diphenhydramine HCl AdvReac HYPERSENSIT Verified 10/19/18 09:46 [From Benayazl] IVITY Travel Screening - Travel/Exposure Within Last 30 Days Have you traveled within the last 30 days?: No - Travel/Exposure Within Last Year Have you traveled outside the [place] in the last year?: No - Additonal Travel Details Have you been exposed to anyone with a communicable illness?: No - Travel Symptoms Symptom Screening: Diarrhea Review of Systems Constitutional: Denies: Chills, Fever Eyes: Denies: Eye discharge ENT: Denies: Congestion Respiratory: Denies: Cough, Dyspnea Past Medical History - SOCIAL HISTORY Smoking Status: Never smoker Alcohol Use: None Drug Use: None - RESPIRATORY Hx Respiratory Disorders: No - CARDIOVASCULAR Hx Cardio Disorders: Yes Hx Hypertension: Yes Comment:: high cholesterol - NEURO Hx Neuro Disorders: Yes Hx Headaches: Yes - GI Hx GI Disorders: Yes Hx Abdominal Pain: Yes Hx of Polyps: Yes - Hx Genitourinary Disorders: Yes Hx UTI: Yes - ENDOCRINE Hx Endocrine Disorders: Yes Hx Diabetes: Yes (Type 2) - MUSCULOSKELETAL Hx Musculoskeletal Disorders: No - PSYCH Hx Psych Problems: Yes Hx Anxiety: Yes - HEMATOLOGY/ONCOLOGY Hx Hematology/Oncology Disorders: No Family Medical History Any Significant Family History?: No Family Hx Comment (NOT TO BE USED IN PLACE OF ITEMS BELOW): Pt adopted. Physical Exam - General General Appearance: Alert, Oriented x3, Cooperative, No acute distress (The patient appears very comfortable and in no distress.) - Head Head exam: Atraumatic, Normocephalic, Normal inspection - ENT Throat exam: Normal inspection. negative: Tonsillar erythema, Tonsillar exudate - Neck Neck exam: Normal inspection, Full ROM. negative: Tenderness - Respiratory Respiratory exam: Normal lung sounds bilaterally. negative: Respiratory distress - Cardiovascular Cardiovascular Exam: Regular rate, Normal rhythm, Normal heart sounds. negative : Diastolic murmur, Systolic murmur - GI/Abdominal GI/Abdominal exam: Soft, Normal bowel sounds, Tenderness (There is mild diffuse lower abdominal tenderness with a soft abdomen.). negative: Distended, Guarding , Rebound, Rigid - Extremities Extremities exam: Normal inspection, Full ROM, Normal capillary refill. negative: Tenderness - Neurological Neurological exam: Alert, Normal gait. negative: Abnormal gait, Motor sensory deficit - Psychiatric Psychiatric exam: negative: Anxious Course Vital Signs 10/19/18 09:37 Temperature 97.8 F Pulse Rate 102 H Respiratory 18 Rate Blood Pressure 131/90 Pulse Ox 95 - Reevaluation(s) Reevaluation #1: The patient is doing much better at this time and has no nausea or significant pain. On exam her abdomen is very soft and non-tender in all 4 quads. I did discuss the normal CT with the patient and also the lab tests that demonstrated mildly elevated liver enzymes. I also did discuss the fact I did send a Hep A screen off and the patient understands the need to see her PCP later this week for recheck and to have her liver enzymes rechecked. 10/19/18 11:15 Medical Decision Making - Data Complexity MDM Data: Labs Ordered and/or Reviewed, X-Ray Ordered and/or Reviewed - Lab Data Result diagrams: 10/19/18 10:10 10/19/18 10:10 - Radiology Data Radiology results: Report reviewed (Abd CT: Essentially neg per Rad. Liquid stool in the colon.) Disposition Disposition: Discharge Clinical Impression: Diarrhea Qualifiers: Diarrhea type: unspecified type Qualified Code(s): R19.7 - Diarrhea, unspecified Disposition: Home, Self-Care Condition: (2) Stable Instructions: Acute Diarrhea (ED) Additional Instructions: Please drink plenty of fluids and use Zofran for nausea and Bentyl for cramping abdominal pain. Please also use Immodium if needed for diarrhea. Follow up with your PCP later this week or next week to have your liver enzymes rechecked and to have the Hep A panel results evaluated. Return to the ER for any worsening pain, fever, blood in the stool, or vomiting. Prescriptions: Dicyclomine HCl [Bentyl] 10 mg PO Q8H #20 cap Ondansetron [Zofran Odt] 4 mg SL .Q4-6H PRN #12 tab.rapdis PRN Reason: Nausea Forms: Patient Portal Access Time of Disposition: 11:19 Quality - Quality Measures Quality Measures: N/A - Blood Pressure Screening View Details: Yes Does Patient Have Any of the Following: No Blood Pressure Classification: Pre-Hypertensive BP Reading Systolic Measurement: 141 Diastolic Measurement: 80 Screening for High Blood Pressure: < Pre-Hypertensive BP, F/U Documented > [ [id number]] Pre-Hypertensive Follow-up Interventions: Referral to alternative/primary care provider.
[2018-10-19 10:16] LABS: BASO % 0.3 % (0-6); EOS % 1.6 % (0-6); GRAN % 67.9 % (47-80); HEMATOCRIT 39.9 % (35.0-47.0); HEMOGLOBIN 13.4 gm/dl (11.6-16.0); LYMPH % 19.2 % (16-45); MEAN CORPUSCULAR HEMOGLOBIN 25.9 pg (27-33); MEAN CORPUSCULAR HGB CONC 33.6 g/dl (32-36); MEAN PLATELET VOLUME 9.1 fl (7.4-10.4); PLATELET COUNT 295 K/uL (130-400); RED BLOOD COUNT 5.18 M/uL (3.80-5.40); RED CELL DISTRIBUTION WIDTH 13.9 % (11.5-14.5); URINE APPEARANCE CLEAR; URINE BILIRUBIN NEGATIVE (NEGATIVE); URINE BLOOD SMALL (NEGATIVE); URINE COLOR YELLOW; URINE KETONE TRACE (NEGATIVE); URINE LEUKOCYTE ESTERASE NEGATIVE (NEGATIVE); URINE NITRITE NEGATIVE (NEGATIVE); URINE PROTEIN TRACE (NEGATIVE); URINE UROBILINOGEN 0.2 E.U./dL (0.20 - 1.00); WHITE BLOOD COUNT W/O DIFF 3.1 K/uL (4.2-12.2)
[2018-10-19 10:21] LABS: URINE GLUCOSE (UA) >=1000 mg/dL (NEGATIVE)
[2018-10-19 10:26] LABS: BLOOD UREA NITROGEN 7 mg/dL (6-20); CREATININE 0.5 mg/dL (0.5-0.9); EST GLOMERULAR FILTRATION RATE > 60 mL/min
[2018-10-19 10:27] LABS: LIPASE 12 U/L (13-60)
[2018-10-19 10:29] LABS: GLUCOSE,RANDOM 287 mg/dL (74-109)
[2018-10-19 10:31] LABS: ALT/SGPT 103 U/L (<33)
[2018-10-19 10:32] LABS: ALBUMIN 3.9 g/dL (4.0-5.0); ALKALINE PHOSPHATASE 192 U/L (45-87); AST/SGOT 156 U/L (10.0-35.0); BILIRUBIN,DIRECT 0.3 mg/dL (0-0.3)
[2018-10-19] MEDS ORDERED: KETOROLAC 30 MG/ML VIAL IVP ONE (10:37)
[2018-10-19] MEDS ORDERED: POTASSIUM CHLORIDE 20 MEQ TABLET PO ONE (10:40)
[2018-10-19 10:51] LABS: URINE RBC 0 - 2 (NONE SEEN)
--- NOTE | 2018-10-21 12:40 | CT SCAN REPORT ---
EXAM: CT OF THE ABDOMEN AND PELVIS WITHOUT CONTRAST HISTORY: LOWER BACK PAIN, DIARRHEA. TECHNIQUE: Noncontrast CT of the abdomen and pelvis was obtained. Comparison: CT of the abdomen and pelvis 01/31/17. FINDINGS: The lung bases are clear. Unremarkable noncontrast CT appearance of the liver, gallbladder, adrenal glands , and pancreas. The spleen is near upper normal limits in size. No hydronephrosis. No intrarenal calculi are seen. No focal colonic thickening or inflammatory changes are seen. A small amount of liquid stool is seen in the colon. Normal appendix. The stomach and small bowel are not dilated. Multiple small mesenteric lymph nodes are noted. No free air or free fluid. The uterus appears absent. Unremarkable appearance of the urinary bladder. The abdominal aorta is not dilated. No acute osseous findings. IMPRESSION: 1. NO ACUTE FINDINGS IN THE ABDOMEN OR PELVIS. 2. SMALL AMOUNT OF LIQUID STOOL NOTED IN THE COLON. JOB NUMBER: [id number] MTDD
== END 2018-10-19 11:37 | disposition home or self-care (01) ==
LOC: ER 09:28
DX: R19.7 Diarrhea, unspecified (principal); R10.30 Lower abdominal pain, unspecified; R11.2 Nausea with vomiting, unspecified; I10 Essential (primary) hypertension
CPT/HCPCS: 99284 ×2; 96374; 96375; 96361; 83690; 85025; 80076; 86140; 80048; 81001; 74176; J1885; J2405; J7030